=== PATIENT | female | born 1990 | race Caucasian/White ===

== ENCOUNTER 2017-08-09 10:01 | Emergency (ER) | payer OTHER ==
[~2017-08-09] VITALS: Ht 157.5 cm; Wt 70.3 kg
--- NOTE | 2017-08-09 10:59 | PHYS DOC ---
Past History Past Medical History: Bipolar Past Surgical History: Appendectomy, Cholecystectomy, Tonsillectomy Alcohol Use: None Drug Use: None Adult General Chief Complaint Chief Complaint: DENTAL PROBLEM HPI HPI 27-year-old female patient with history of bipolar disorder complaining of right lower wisdom tooth fracture for the last 2 weeks with having pain and states she was seen at [facility] and treated with Keflex and Naprosyn. Patient states she has appointment with her dentist next weeks that her pain is not getting better. Patient denies fever and chills and problem with swallowing. Review of Systems Review of Systems Constitutional: Denies fever or chills [] Eyes: Denies change in visual acuity, redness, or eye pain [] HENT: Denies nasal congestion or sore throat [] Respiratory: Denies cough or shortness of breath [] Cardiovascular: No additional information not addressed in HPI [] GI: Denies abdominal pain, nausea, vomiting, bloody stools or diarrhea [] : Denies dysuria or hematuria [] Musculoskeletal: Denies back pain or joint pain [] Integument: Denies rash or skin lesions [] Neurologic: Denies headache, focal weakness or sensory changes [] Endocrine: Denies polyuria or polydipsia [] All other systems were reviewed and found to be within normal limits, except as documented in this note. Allergies Allergies Allergies Coded Allergies Type Severity Reaction Last Updated Verified No Known Drug Allergies 08/09/17 No Physical Exam Physical Exam Constitutional: Well developed, well nourished, mild distress, non-toxic appearance. [] HENT: Normocephalic, atraumatic, bilateral external ears normal, oropharynx moist, no oral exudates, nose normal. Right lower wisdom tooth mild tenderness with mild inflammation of gum Eyes: PERRLA, EOMI, conjunctiva normal, no discharge. [] Neck: Normal range of motion, no tenderness, supple, no stridor. [] Cardiovascular:Heart rate regular rhythm, no murmur [] Lungs & Thorax: Bilateral breath sounds clear to auscultation [] Neurologic: Alert and oriented X 3, normal motor function, normal sensory function, no focal deficits noted. [] Psychologic: Affect normal, judgement normal, mood normal. [] Current Patient Data Vital Signs Vital Signs Date Time Temp Pulse Resp B/P (MAP) Pulse Ox O2 Delivery O2 Flow Rate FiO2 08/09/17 10:10 97.5 57 18 97 Room Air EKG EKG [] Radiology/Procedures Radiology/Procedures [] Course & Med Decision Making Course & Med Decision Making Evolution of patient in ER showed 27-year-old female patient with complaining of tooth pain for 3 weeks and broken tooth. Patient had right lower molar #4 fracture with mild inflammation without sign of abscess. Plan to give prescription for pen VK and Ultram and instruction to follow with her dentist as scheduled next week. Dragon Disclaimer Dragon Disclaimer This electronic medical record was generated, in whole or in part, using a voice recognition dictation system. Departure Departure: Impression: Primary Impression: Dentalgia Disposition: HOME, SELF-CARE (At 1114) Condition: STABLE Referrals: FRANCHESKA ERWIN APRN (PCP) Patient Instructions: Toothache-Brief Additional Instructions: Follow-up with your dentist as a scheduled Follow-up with your primary care physician in 3-5 days Return to ER if not getting better ROSEANNE SAWANT MD Aug 09, 2017 10:59
[2017-08-09] MEDS ORDERED: KETOROLAC 60 MG/2 ML VIAL. IM ONE (11:00)
[2017-08-09 11:40] VITALS: BP 121/68
== END 2017-08-09 11:42 | disposition home or self-care (01) ==
LOC: ER 10:01
DX: K08.89 Other specified disorders of teeth and supporting structures (principal); F31.9 Bipolar disorder, unspecified
CPT/HCPCS: 96372; 99283; J1885

== ENCOUNTER 2019-03-18 08:40 | Emergency (ER) | payer SELFPAY ==
[~2019-03-18] VITALS: Ht 157.5 cm; Wt 83.7 kg
[2019-03-18] MEDS ORDERED: AMOX1TAB61 PO (08:52)
[2019-03-18] MEDS ORDERED: HYDR-3136 PO (08:53)
--- NOTE | 2019-03-18 09:18 | PHYS DOC ---
Past History Past Medical History: Bipolar Past Surgical History: Appendectomy, Cholecystectomy, Tonsillectomy Alcohol Use: None Drug Use: None Adult General Chief Complaint Chief Complaint: Toothache HPI HPI Patient is a 28-year-old female presenting with chief complaint of dental pain. Patient states about a week now or more cracked tooth feels like is getting infected plans to see a dentist as soon as possible no feverAll other ROS neg unless otherwise noted in HPI Review of Systems Review of Systems SEE ABOVE Allergies Allergies Allergies Coded Allergies Type Severity Reaction Last Updated Verified No Known Drug Allergies 08/09/17 No Physical Exam Physical Exam see above Constitutional: Well developed, well nourished, no acute distress, non-toxic appearance. [] HENT: Normocephalic, atraumatic, bilateral external ears normal, oropharynx moist, no oral exudates, nose normal. [] Poor dentition with cracked tooth and mild swelling around the right lower molar no drainable abscess Eyes: PERRLA, EOMI, conjunctiva normal, no discharge. [] Neck: Normal range of motion, no tenderness, supple, no stridor. [] Neurologic: Alert and oriented X 3, normal motor function, normal sensory function, no focal deficits noted. [] Psychologic: Affect normal, judgement normal, mood normal. [] EKG EKG [] Radiology/Procedures Radiology/Procedures [] Course & Med Decision Making Course & Med Decision Making Pertinent Labs and Imaging studies reviewed. (See chart for details) [] Dragon Disclaimer Dragon Disclaimer This electronic medical record was generated, in whole or in part, using a voice recognition dictation system. Departure Departure: Impression: Primary Impression: Toothache Disposition: HOME, SELF-CARE Condition: STABLE Patient Instructions: Toothache-Brief Scripts Hydrocodone Bit/Acetaminophen (NORCO 10-325 TABLET) 1 Each Tablet 1-2 TAB PO Q4-6HRS PRN for PAIN, #6 TAB Prov: BENI BALDWIN MD 03/18/19 Amoxicillin/Potassium Clav (AUGMENTIN 875-125 TABLET) 1 Each Tablet 1 TAB PO BID for PAIN for 10 Days, #20 TAB 0 Refills Prov: BENI BALDWIN MD 03/18/19 BENI BALDWIN MD Mar 18, 2019 09:18
[2019-03-18 09:53] VITALS: BP 135/81
== END 2019-03-18 08:59 | disposition home or self-care (01) ==
LOC: ER 08:40
DX: K08.89 Other specified disorders of teeth and supporting structures (principal); K03.81 Cracked tooth; Z90.89 Acquired absence of other organs
CPT/HCPCS: 99283

== ENCOUNTER → 2020-04-14 | Outpatient (CLI) | payer MEDICAID ==
[~2020-04-14] MED LIST: AMOX1TAB61 PO; HYDR-3136 PO
--- NOTE | 2020-04-14 10:32 | RAD ---
Pelvic ultrasound INDICATION: Pelvic pain. IUD placement. LMP 03/24/2020. COMPARISON: [facility] 04/20/2011 TECHNIQUE: Transabdominal ultrasound of the pelvis was performed with grayscale, color and spectral Doppler imaging. FINDINGS: Uterus measures 7.7 x 5.3 x 3.6 cm. An IUD is present within the endometrial canal, close to the fundus. The right ovary measures 2.2 x 2.3 x 2.8 cm and demonstrates normal blood flow. The left ovary measures 2.5 x 2.0 x 2.0 cm and demonstrates normal blood flow. No pelvic free fluid or adnexal mass. IMPRESSION: Normal pelvic ultrasound with an IUD in apparent satisfactory position. Electronically signed by: Jose Montgomery MD (04/14/2020 10:29 AM) [id number]
== END ==
LOC: PMG 09:19
PROVIDERS: ATTEND Physician Assistant Medical
DX: Z30.430 Encounter for insertion of intrauterine contraceptive device (principal); R10.2 Pelvic and perineal pain
CPT/HCPCS: 76856

== ENCOUNTER → 2021-02-15 | Outpatient (CLI) | payer MEDICAID ==
--- NOTE | 2021-02-15 15:30 | RAD ---
EXAM: Left knee, 4 views. HISTORY: Pain. COMPARISON: None. FINDINGS: 4 views of the left knee are obtained. There is minimal medial compartment joint space narr owing. There is no fracture, dislocation or subluxation. There is no joint effusion. IMPRESSION: No acute osseous finding. Electronically signed by: Anita Marcelo MD (02/15/2021 3:28 PM) [id number]
== END ==
LOC: RAD 15:03
PROVIDERS: ATTEND Physician Assistant Medical
DX: M25.562 Pain in left knee (principal)
CPT/HCPCS: 73564